=== PATIENT | female | born 1990 | race Caucasian/White ===

== ENCOUNTER 2017-01-28 21:09 | Emergency (ER) | payer MEDICAID ==
--- NOTE | ~2017-01-28 | ER ---
PATIENT'S NAME: CESARIO SHEPHERD [facility] AGE: 26 Y [address] ROOM: [place] [address] LOCATION: [facility] ADMIT DATE: 01/28/2017 ER/Outpatient Report DISCHARGE DATE: 01/28/2017 FAMILY PHYSICIAN: Mirta Whalen MD ATTENDING PHYSICIAN: Sugar Deluca Time of Arrival: 2109 hours. Time of Evaluation: 2130 hours. IDENTIFICATION: A 26-year-old female. CHIEF COMPLAINT: Right-sided abdominal pain. HISTORY OF PRESENT ILLNESS: The patient is a 26-year-old female, who states she was diagnosed with a pelvic infection in a clinic today, again a shot of Rocephin and prescribed doxycycline, which she has taken one dose. She had a Mirena IUD, which removed in the clinic. She has had some vaginal discharge. She has had nausea, vomiting x1, chills, and then pain in her right abdomen. She had pain starting a week ago and had an ultrasound of her right upper quadrant in the clinic, which was reportedly negative. She is in a stable monogamous relationship. Denies any history of PID. ALLERGIES: NO KNOWN DRUG ALLERGIES. CURRENT MEDICATIONS: Rocephin injection in the clinic and then doxycycline. SOCIAL HISTORY: The patient lives here in [place]. She works at [employer] in [place]. She has a stable monogamous relationship. Tobacco use, denies. Alcohol use, denies. Drug use, denies. REVIEW OF SYSTEMS: All systems reviewed and negative other than what is noted in the HPI. FAMILY HISTORY: No pertinent family history. PHYSICAL EXAMINATION: VITAL SIGNS: Height 5 feet and 5 inches, weight 96.6 kg, blood pressure 134/69, pulse 101, respirations 16, temperature 98.9, and saturations 99%. PATIENT'S NAME: LADONNA SHEPHERDHEL Garcia [facility] AGE: 26 Y [address] ROOM: [place] [address] LOCATION: [facility] ADMIT DATE: 01/28/2017 ER/Outpatient Report DISCHARGE DATE: 01/28/2017 FAMILY PHYSICIAN: Mirta Whalen MD ATTENDING PHYSICIAN: Sugar Deluca She said her T-max was 101 at home. She had been rechecked her temperature here when I first walked in the room and it was 99.2 and subsequently rechecked after that 98.5. GENERAL: A 26-year-old female in mild distress, complaining of right mid abdominal pain. HEENT: Head: Normocephalic and atraumatic. Eyes: Pupils equal and reactive to light and accommodation. TMs not visualized. Oropharynx benign. NECK: Supple. No lymphadenopathy. No nuchal rigidity. LUNGS: Clear to auscultation. HEART: Regular rate and rhythm. ABDOMEN: Soft. Nondistended. Tender to palpation in the right mid abdomen. No rebound or guarding. No CVA tenderness. SKIN: [place], warm, and dry. No lesions or rashes noted. NEURO: No focal deficits. The patient was complaining of 8/10 pain. She was given [place] 5/325 and Zofran 4 mg. Her nausea improved and her pain improved to a 2. Blood cultures x2 have been drawn and those results are pending. Lactate 0.7. UA: Specific gravity 1.025, pH 6, leukocytes positive, nitrites negative, 2 to 5 white cells, 0 to 2 red cells, 0 to 2 epithelial cells, few bacteria, few white blood cell clumps. Urine culture pending. Hemoglobin 13.1, hematocrit 40.5, platelets 285, and white count 6.4 with a normal differential. Sodium 139, potassium 3.7, chloride 105, CO2 of 28, BUN 9, creatinine 0.8, and blood sugar 83. Liver enzymes negative. Procalcitonin less than 0.05. IMPRESSION: History of pelvic infection. PLAN: The patient is feeling better with [place] and Zofran. I did explain to her that we should do a CT scan to look at her appendix. She refuses to do that here tonight. She will follow up tomorrow scheduled at [address] Whalen. Clear liquids as tolerated. Advance diet as tolerated. Tylenol or Advil for nhda-qw-elhadcgh pain. Zofran 4 mg 1 p.o. q.6 hours p.r.n. for nausea, dispensed 2 with 0 refills. [place] 5/325 one p.o. q.6 hours p.r.n. for pain, dispensed 3 with 0 refills. Follow up as scheduled tomorrow. Continue her oral antibiotics. The patient understands and agrees, and all questions have been answered. SUGAR DELUCA MD CAR/modl PATIENT'S NAME: CESARIO SHEPHERD [facility] AGE: 26 Y [address] ROOM: [place] [address] LOCATION: [facility] ADMIT DATE: 01/28/2017 ER/Outpatient Report DISCHARGE DATE: 01/28/2017 FAMILY PHYSICIAN: Mirta Whalen MD ATTENDING PHYSICIAN: Sugar Deluca /[id number] d: 01/29/17 0318 t: 01/29/17 0454, OUTPATIENT REPORT
[~2017-01-28 21:09] MED LIST: DERMOPLAST SPRA56 GM TOP; FEOSOL325 MG PO; MOTRIN800 MG PO; PRENATAL 1+1)(P1 TAB PO; SURFAK240 MG PO; ZOLOFT25 MG PO
[2017-01-28 21:59] LABS: BLOOD URINE 25 /UL (NEGATIVE); GLUCOSE URINE NEGATIVE (NEGATIVE); KETONE URINE 5 mg/dL (NEGATIVE); LEUKOCYTES URINE 500 /UL (NEGATIVE); NITRITE URINE NEGATIVE (NEGATIVE); PROTEIN URINE 30 mg/dL (NEGATIVE); SPEC GRAVITY URINE 1.025 (1.003-1.035); UROBILINOGEN URINE 4 mg/dL (NORMAL)
[2017-01-28 22:00] LABS: COLOR URINE YELLOW (YELLOW); TURBIDITY URINE 1+ (CLEAR)
[2017-01-28 22:07] LABS: BACTERIA URINE FEW (NEGATIVE); EPITHELIAL URINE 0-2 #/HPF (NEGATIVE); MUCUS URINE 4+ (NEGATIVE); RBC URINE 0-2 #/HPF (NEGATIVE)
[2017-01-28 22:08] LABS: WBC CLUMPS URINE FEW (NEGATIVE)
[2017-01-28 22:19] LABS: BASOPHIL % 0.3 %; EOSINOPHIL % 0.6 %; HEMATOCRIT 40.5 % (33.0-46.0); HEMOGLOBIN 13.1 g/dL (11.0-15.0); IMMATURE GRANULOCYTE % 0.2 %; LYMPHOCYTE # 1.6 K/uL (0.8-4.0); LYMPHOCYTE % 25.3 %; MCH 28.5 pg (27.0-34.0); MCHC 32.3 gm/dL (32.0-36.5); MONOCYTE # 0.6 K/uL (0.0-1.0); MONOCYTE % 9.9 %; NEUTROPHIL # (ANC) 4.1 K/uL (1.8-7.8); NEUTROPHIL % 63.7 %; NRBC % 0 /100WBC (0-0.00); PLATELET COUNT 285 K/uL (150-450); RDW-CV 12.9 % (11.9-14.6); WBC 6.4 K/uL (4.0-11.0)
[2017-01-28 22:37] LABS: ALBUMIN 3.7 gm/dL (3.5-5.0); ALK PHOS 89 IU/L (33-138); ALT 31 IU/L (12-78); ANION GAP 9.7 (10.0-19.0); AST 20 IU/L (10-40); BLOOD UREA NITROGEN 9 mg/dL (6-24); CALCIUM 8.4 mg/dL (8.5-10.5); CHLORIDE 105 mMol/L (96-110); CO2 28 mMol/L (22-32); CREATININE 0.8 mg/dL (0.5-1.1); ESTIMATED GFR (MDRD EQUATION) > 60; POTASSIUM 3.7 mMol/L (3.7-5.1); SODIUM 139 mMol/L (135-145); TOTAL PROTEIN 7.8 g/dL (6.0-8.4)
[2017-01-28 22:38] LABS: TOTAL BILIRUBIN 0.5 mg/dL (0.0-1.5)
== END 2017-01-28 22:50 | disposition disaster alternative care site (69) ==
LOC: GMED 21:09
PROVIDERS: Family Medicine
DX: N73.9 Female pelvic inflammatory disease, unspecified (principal)

== ENCOUNTER → 2017-01-30 | Outpatient (CLI) | payer MEDICAID | END | disposition disaster alternative care site (69) | LOC: GRAD 11:00 | DX: N73.9 Female pelvic inflammatory disease, unspecified (principal); N83.201 Unspecified ovarian cyst, right side; R10.2 Pelvic and perineal pain; R10.31 Right lower quadrant pain ==

== ENCOUNTER → 2017-01-30 | Outpatient (CLI) | payer MEDICAID | END | disposition disaster alternative care site (69) | LOC: GRAD 14:42 | DX: R10.31 Right lower quadrant pain (principal); N83.201 Unspecified ovarian cyst, right side; R50.9 Fever, unspecified | CPT/HCPCS: Q9967 ==

== ENCOUNTER 2017-02-01 12:55 | Emergency (ER) | payer MEDICAID ==
--- NOTE | ~2017-02-01 | ER ---
PATIENT'S NAME: CESARIO SHEPHERD [facility] AGE: 26 Y [address] ROOM: [place] [address] LOCATION: [facility] ADMIT DATE: 02/01/2017 ER/Outpatient Report DISCHARGE DATE: 02/01/2017 FAMILY PHYSICIAN: Chelsi Catalan MD ATTENDING PHYSICIAN: Sugar Hanks Time of Arrival: 1255. Time Seen: 1332. IDENTIFICATION: 26-year-old female. CHIEF COMPLAINT: Vaginal rash. HISTORY OF PRESENT ILLNESS: The patient is a 26-year-old female, who I saw here in the emergency room on January 28. She had been to Dr. Whalen that same day and then she had been to Dr. Whalen the following day on January 29. She said she was diagnosed with yeast infection, placed on Diflucan and topical yeast medication, but now she states she has a lot of perineal discomfort and pain with a rash. She had a right lower quadrant pain, which she was seen in the ER on the has improved. Her nausea has improved. She has had no vaginal discharge. She has had some vaginal bleeding since they removed the IUD. PAST MEDICAL HISTORY: ALLERGIES: NO KNOWN DRUG ALLERGIES. CURRENT MEDICATIONS: She received on the ; a Rocephin injection in the clinic and then doxycycline. Here in the emergency room, she received some Narcan and Zofran and then she has had Diflucan x1 and I think [id number] Monistat. ALLERGIES: SHE TOLD THE NURSE SHE IS ALLERGIC TO EFFEXOR. SOCIAL HISTORY: The patient lives here in [place]. 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 She is in a stable monogamous relationship. She has two children. Tobacco use, denies. Alcohol use, denies. Drug use, denies. FAMILY HISTORY: No pertinent family history identified. PATIENT'S NAME: CESARIO SHEPHERD [facility] AGE: 26 Y [address] ROOM: [place] [address] LOCATION: [facility] ADMIT DATE: 02/01/2017 ER/Outpatient Report DISCHARGE DATE: 02/01/2017 FAMILY PHYSICIAN: Chelsi Catalan MD ATTENDING PHYSICIAN: Sugar Hanks REVIEW OF SYSTEMS: All systems reviewed and negative other than what is noted in the HPI. Specifically, the patient has had no history of STDs. She said chlamydia and gonorrhea testing was done here on the and was negative and the patient states that she is no longer running fevers as she was. PHYSICAL EXAMINATION: VITAL SIGNS: Height 5 feet 5 inches, weight 97.4 kg, blood pressure 115/64, pulse 72, respirations 16, temperature 98.3, sats 94% on room air. GENERAL: A 26-year-old female in [id number] distress. HEENT: Unremarkable. LUNGS: Clear to auscultation. HEART: Regular rate and rhythm. ABDOMEN: Soft, nondistended, minimally tender to palpation. No rebound or guarding. SKIN: [place], warm, and dry. PELVIC: External genitalia, the patient is currently having some bleeding from her period. She has some external ulcerative lesions along her perineum and on the inner aspect of her labia on the left side. These will be sent for culture for herpes simplex. Wet prep here today is negative for yeast infection. IMPRESSION: Genital herpes. PLAN: Herpes handout, Valtrex 1000 mg b.i.d. for 7 days. Safe sex discussed. Continue doxycycline. Follow up with Dr. Catalan next week. Follow up sooner if any problems or concerns. The patient understands and agrees and all questions were answered in detail. SUGAR HANKS MD CAR/modl /[id number] d: 02/01/172156 t: 02/06/17 0757, OUTPATIENT REPORT
== END 2017-02-01 14:41 | disposition disaster alternative care site (69) ==
LOC: GMED 12:55
DX: A60.00 Herpesviral infection of urogenital system, unspecified (principal); Z88.8 Allergy status to other drugs, medicaments and biological substances